=== PATIENT | male | born 1965 | race Caucasian/White ===

== ENCOUNTER 2022-04-15 16:15 | Emergency (ER) | payer MEDICAID, SELFPAY ==
[2022-04-15 16:16] VITALS: BP 149/96; PULSE 113; RESP 31; TEMP 36.7; O2SAT 96; BMI 30.8
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
[2022-04-15] MEDS: Ondansetron 4 MG/2 ML Vial IV (16:38)
[2022-04-15] MEDS: Morphine 4 MG/ML Syringe IV (16:38)
[2022-04-15] MEDS: 0.9% Normal Saline 1,000 ML 1000 ML IV (16:39)
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
[2022-04-15 16:43] LABS: Absolute Lymphocyte Count 2.38 X10^3/uL (0.83-4.51); Basophil# 0.05 X10^3/uL; Basophil% 0.3 % (0-1); Eosinophil# 0.07 X10^3/uL; Eosinophils% 0.4 % (0-5); Hematocrit 43.3 % (40-54); Hemoglobin 15.1 g/dL (13.0-16.5); Lymphocyte # 2.38 X10^3/ul (0.83-4.51); Lymphocyte % 14.3 % (19-41); Mean Corp Hgb Conc 34.9 g/dL (32-36); Mean Corpuscular Hgb 29.6 pg (27.0-32.0); Mean Corpuscular Volume 84.9 fL (80-94); Mean Platelet Vol. 9.6 fl (6.2-12.0); Monocyte# 1.05 X10^3/uL; Monocyte% 6.3 % (0-10); NRBC Flagged by Analyzer 0 % (0-5); Neutrophil # 12.96 X10^3/uL (2.7-7.7); Neutrophil % 77.7 % (47-70); Platelet Count 241 K/mm3 (150-450); RBC Distribution Width CV 12.8 % (11.6-14.6); White Blood Count 16.7 K/mm3 (4.4-11.0)
[2022-04-15 16:56] LABS: Anion Gap 7 (5-15); BUN 15 mg/dL (7-18); BUN/Creat Ratio 9.6 RATIO (10-20); Calcium,Total 8.4 mg/dL (8.5-10.1); Chloride 113 mmol/L (98-107); Creatinine, Serum 1.56 mg/dL (0.70-1.30); EST Glomerular Filtration Rate 49 mL/min (>60); Est Glom Filt Rate - Afr Amer 59 mL/min (>60); Estimated Creatinine Clearance 53.94 ml/min; Glucose 160 mg/dL (74-106); Potassium 3.9 mmol/L (3.5-5.1); Sodium Level 145 mmol/L (136-145)
[2022-04-15] MEDS: fentaNYL 100 MCG/2 ML Ampul 50 MCG IV (17:01)
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
[2022-04-15 17:52] VITALS: BP 130/93; PULSE 111; RESP 24; O2SAT 99
[2022-04-15] MEDS: HYDROmorphone 0.5 MG/0.5 ML SYRINGE IV ×2 (18:00→21:26)
[2022-04-15 18:01] VITALS: BP 133/89; PULSE 111; RESP 22; O2SAT 97
[2022-04-15 18:08] LABS: Mucous, Urine 0 SEEN /hpf (<or=2+)
[2022-04-15 18:13] LABS: Color, Urine Brown (Yellow); Glucose, Dipstick Normal (Normal); Ketone-Dipstick 5 mg/dl (Negative); Leukocyte Esterase-Dipstick 25 /ul (Negative); Nitrite-Dipstick Negative (Negative); Occult Blood-Urine 250 /ul (Negative); Protein-Dipstick 100 mg/dl (Negative); Urine Bilirubin Dipstick Negative (Negative); Urine Clarity Turbid (Clear); Urine Urobilinogen Normal (Normal); Urine pH 6.5 (5.0 - 8.0)
[2022-04-15 18:28] LABS: Red Blood Cells-Urine > 100 SEEN /hpf (0-5); Squamous Epithelial Cells - UA 0-5 SEEN /hpf (0-5); White Blood Cells 5-10 SEEN /hpf (0-5)
[2022-04-15 18:29] LABS: Bacteria 2+ /hpf (None Seen)
[2022-04-15 20:22] VITALS: BP 133/56; PULSE 106; RESP 18; TEMP 36.4; O2SAT 97
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
[2022-04-15 21:03] VITALS: PULSE 113; RESP 20; O2SAT 95
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
[2022-04-15] MEDS: 0.9% Normal Saline 1,000 ML 150 ML IV (21:14)
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
[2022-04-15 21:38] LABS: CPK Total, Creatine Kinase 327 U/L (39-308)
[2022-04-15 22:27] VITALS: BP 144/90; PULSE 115; RESP 19; TEMP 36.7; O2SAT 95
[2022-04-16] MEDS: HYDROmorphone 0.5 MG/0.5 ML SYRINGE IV (00:02)
== END 2022-04-16 00:23 | disposition short-term general hospital (02) ==
PROVIDERS: Nurse Practitioner; Emergency Provider Emergency Medicine; Visit Provider Emergency Medicine
DX: S32.82XA Multiple fractures of pelvis without disruption of pelvic ring, initial encounter for closed fracture (principal); S32.19XA Other fracture of sacrum, initial encounter for closed fracture; S22.41XA Multiple fractures of ribs, right side, initial encounter for closed fracture; S46.911A Strain of unspecified muscle, fascia and tendon at shoulder and upper arm level, right arm, initial encounter; W55.22XA Struck by cow, initial encounter; W55.89XA Other contact with other mammals, initial encounter; Y93.89 Activity, other specified; Y92.79 Other farm location as the place of occurrence of the external cause; Y99.8 Other external cause status; N28.9 Disorder of kidney and ureter, unspecified; E66.9 Obesity, unspecified; R31.9 Hematuria, unspecified; R73.9 Hyperglycemia, unspecified
CPT/HCPCS: 71260; 72170; 73030; 73552; 74177; 80048; 81001; 82550; 85025; 87086; 87811; 96361; 96374; 96375; 96376; 99285; J7030; Q9967; A4216; J2405

== ENCOUNTER 2022-04-21 14:45 | Inpatient (IN) | payer MEDICAID, SELFPAY ==
[2022-04-21 14:52] VITALS: BP 118/56; PULSE 60; RESP 18; TEMP 36.6; O2SAT 93
[2022-04-21 14:56] VITALS: BMI 31.8
[2022-04-21 19:22] VITALS: BP 126/64; PULSE 64; RESP 18; TEMP 36.7; O2SAT 94
[2022-04-21 22:00] VITALS: PULSE 64; RESP 18; O2SAT 94
[2022-04-21] MEDS: Senna/Docusate Sodium 1 Tablet 2 TABLET PO (22:16)
[2022-04-21] MEDS: oxyCODONE 5 MG Tablet PO (22:16)
[2022-04-21] MEDS: Acetaminophen 325 MG Tablet 650 MG PO (22:17)
--- NOTE | 2022-04-22 03:46 | NURSING ---
Reviewed and agree with [employer] documentation and assessment charting.
[2022-04-22 05:28] LABS: Absolute Lymphocyte Count 1.46 X10^3/uL (0.83-4.51); Absolute Neutrophil Count 7.9 X10^3/uL (2.0-7.7); Basophil# 0.03 X10^3/uL; Basophil% 0.3 % (0-1); Eosinophil# 0.11 X10^3/uL; Hematocrit 31.9 % (40-54); Hemoglobin 11.2 g/dL (13.0-16.5); Lymphocyte # 1.46 X10^3/ul (0.83-4.51); Lymphocyte % 13.6 % (19-41); Mean Corp Hgb Conc 35.1 g/dL (32-36); Mean Corpuscular Hgb 30.4 pg (27.0-32.0); Mean Corpuscular Volume 86.4 fL (80-94); Mean Platelet Vol. 8.2 fl (6.2-12.0); Monocyte# 1.16 X10^3/uL; Monocyte% 10.8 % (0-10); NRBC Flagged by Analyzer 0 % (0-5); Neutrophil # 7.86 X10^3/uL (2.7-7.7); Neutrophil % 72.9 % (47-70); Platelet Count 275 K/mm3 (150-450); RBC Distribution Width CV 12.6 % (11.6-14.6); RBC Distribution Width SD 39.7 fl (35.1-43.9); Red Blood Count 3.69 M/mm3 (4.6-6.2); White Blood Count 10.8 K/mm3 (4.4-11.0)
[2022-04-22 05:54] LABS: ALB/GLOB Ratio 0.5 RATIO (0.9-2.4); AST(SGOT) 65 U/L (15-37); Alanine Aminotransfer ALT/SGPT 92 U/L (16-61); Albumin, Serum 2.3 g/dL (3.2-5.0); Alkaline Phosphatase 80 U/L (45-117); Anion Gap 7 (5-15); BUN 23 mg/dL (7-18); BUN/Creat Ratio 24.4 RATIO (10-20); Calcium,Total 8.1 mg/dL (8.5-10.1); Chloride 102 mmol/L (98-107); Creatinine, Serum 0.94 mg/dL (0.70-1.30); EST Glomerular Filtration Rate 88 mL/min (>60); Est Glom Filt Rate - Afr Amer 106 mL/min (>60); Estimated Creatinine Clearance 89.52 ml/min; Globulin 4.2 g/dL (2.2-4.2); Glucose 111 mg/dL (74-106); Magnesium 2.3 mg/dL (1.6-2.6); Phosphorus 3.1 mg/dL (2.5-4.9); Potassium 4.2 mmol/L (3.5-5.1); Protein, Total 6.5 g/dL (6.4-8.2); Sodium Level 137 mmol/L (136-145)
[2022-04-22] MEDS: oxyCODONE 5 MG Tablet PO ×2 (06:02→16:04)
[2022-04-22] MEDS: Enoxaparin 40 MG/0.4 ML Syringe SC (06:03)
[2022-04-22 07:44] VITALS: BP 111/68; PULSE 101; RESP 18; TEMP 36.6; O2SAT 95
[2022-04-22 08:15] VITALS: O2SAT 95
[2022-04-22] MEDS: Menthol/Lanolin/Calamine/Znox 113 GM Tube 1 APPLIC TOPICAL ×2 (09:04→21:21)
[2022-04-22] MEDS: Senna/Docusate Sodium 1 Tablet 2 TABLET PO ×2 (09:04→21:21)
--- NOTE | 2022-04-22 09:04 | PCM.HP.STD ---
HPI - General General Date of Admission: 04/21/22 Date of Service: 04/22/22 Chief Complaint: Physical debility due to traumatic injuries sustained when he was trampled by a bull on 04/15/22. HPI Narrative DEBRA DURAN, is a 57 YO M with no significant PMH who presented to the ED at [facility] on 04/15/22 after his bull pinned him against a post and then proceeded to stomp him. He c/o pain in the left hip and thigh and the abdomen. Plain XRAYS in the ED showed fractures of the left superior and inferior pubic rami, left sacral fracture, L5 transverse process fracture and pubic symphysis diastasis. CT scan of the chest, abdomen and pelvis showed Fractured third and fourth ribs on the R. Dr. Barnhart from orthopedics saw Mr. Duran in the ED and recommended he be considered for fixation of the fractures. He recommended transfer to a facility where he could be evaluated by an orthopedic traumatologist. He was transferred to [facility] to the trauma service. Trauma service at [facility] recommended non-surgical management with TTWB only. While at [facility] he had R shoulder pain and a MRI of the shoulder was ordered and it showed a full-thickness tear of the supraspinatus with retraction with moderate associated joint effusion. This will be addressed as an OP. He was evaluated by PT/OT at [facility] and acute rehab was recommended. He was transferred to the acute inpt rehab unit at [facility] on 04/21/22 for 3 hours of therapy daily to restore function to the point where he could safely return home to recover from his injuries. All lab from this AM was personally reviewed. White blood cell count is normal. Hemoglobin is 11.2, down from 15.1 on 04/15/2022. Platelets are within normal limits. CMP is remarkable for an elevated BUN at 23 with a creatinine of 0.94, down from 1.56 on 04/15/2022. Calcium corrected for hypoalbuminemia is within normal limits. Mag and Phos are normal. AST and ALT are mildly elevated and the total bilirubin and alkaline phosphatase are normal. I suspect this is due to muscle trauma from being trampled. ` Debra is complaining of pain in the testicles and the scrotum and tells me that there are very swollen [facility] Medical History Obesity Home Medications enoxaparin 40 mg/0.4 mL subcutaneous syringe (Lovenox) 40 mg subcut Q24H blood clot prevention 04/21/22 [History Last Taken Unknown] oxycodone 5 mg tablet 5 - 10 mg PO Q4H PRN Pain 04/21/22 [History Last Taken 04/21/22 13:00] Allergy/AdvReac Type Severity Reaction Status Date / Time No Known Allergies Allergy Verified 04/15/22 16:22 Family History (Updated 04/22/22 @ 17:[address] Rosangela Rubio DO) Mother Heart disease valvular heart disease and his mom is still alive in 2021. Diabetes Father Heart disease he had CAD but of LANDEROS. Surgical History History of tonsillectomy and adenoidectomy S/P bunionectomy Social History (Updated 04/22/22 @ 17:[address] 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 He has an rare cigar now. alcohol intake: current alcohol intake frequency: 0-2 drinks per day details: 1 drink daily, beer. substance use type: does not use ROS Constitutional Constitutional: Reports difficulty sleeping and weakness; Denies anorexia, change in weight, chills, fatigue, fever(s) or night sweats Eyes Eyes: Denies blurry vision, change in vision, eye pain or loss of vision ENT HEENT: Denies abnormal hearing, dysphagia, headache(s), hearing loss, nasal congestion or sore throat Cardiovascular Cardiovascular: Reports chest pain; Denies dyspnea on exertion, edema, lightheadedness, orthopnea, palpitations, paroxysmal nocturnal dyspnea or syncope Respiratory/Chest Respiratory/Chest: Denies cough, dyspnea, shortness of breath at rest, shortness of breath with exertion or wheezing Gastrointestinal Gastrointestinal: Reports constipation; Denies abdominal pain, diarrhea, dyspepsia, hematemesis, hematochezia, nausea or vomiting Genitourinary Genitourinary: Reports nocturia, scrotal swelling, testicular swelling, urinary frequency and urinary urgency; Denies dysuria, hematuria, urinary hesitancy or urinary incontinence Musculoskeletal Musculoskeletal: Reports joint pain; Denies back pain, joint swelling or neck pain Neurologic Neurologic: Denies confusion, disequilibrium, dizziness, focal weakness, headache(s), paresthesias, seizures or tremor(s) Psychiatric Psychiatric: Denies anxiety, depression, homicidal ideation or suicidal ideation Endocrine Endocrinology: Denies change in body appearance, polydipsia or polyuria Hematologic/Lymphatic Hematologic/Lymphatic: Denies easy bleeding, easy bruising or lymphadenopathy Allergic/Immunologic Allergic/Immunologic: Denies rhinitis, eczemia or asthma Vital Signs Vital Signs Vital Signs: 04/21/22 14:52 04/21/22 19:22 04/21/22 22:00 Temperature 97.9 F 98.1 F Temperature Source Oral Oral Pulse Rate 60 64 Pulse Strength Weak (1+) Respiratory Rate 18 18 Respiratory Effort Respiratory Depth Respiratory Pattern Blood Pressure 118/56 L 126/64 H Blood Pressure Mean 76 84 Blood Pressure Source Monitor Monitor Blood Pressure Position Semi-Fowlers Semi-Fowlers Blood Pressure Location Left Arm Right Arm Pulse Ox 93 94 Oxygen Delivery Method Room Air Room Air 04/21/22 22:00 04/22/22 07:44 04/22/22 08:15 Temperature 97.8 F Temperature Source Oral Pulse Rate 64 101 H Pulse Strength Respiratory Rate 18 18 Respiratory Effort Normal Non-Labored Respiratory Depth Normal Respiratory Pattern Normal Blood Pressure 111/68 Blood Pressure Mean 82 Blood Pressure Source Monitor Blood Pressure Position Semi-Fowlers Blood Pressure Location Left Arm Pulse Ox 94 95 95 Oxygen Delivery Method Room Air Room Air Room Air Weight Weight: 222 lb Body Mass Index (BMI) 31.8 Physical Exam Const alert and oriented x3 Constitutional Narrative: Making good eye contact, appropriate. Appears to be in pain and has not had any pain medication other than Tylenol since 0630 this AM. General Appearance: cooperative and anxious HEENT HEENT Narrative: Dry mucous membranes and he was instructed to increase his fluid intake Head and Scalp: normal to inspection, normocephalic and atraumatic Eyes PERRL, EOMs intact bilaterally, conjunctivae normal, no scleral icterus and normal visual huerta by confrontation Neck no lymphadenopathy, supple, no JVD and no carotid bruits Neck Narrative: Brisk carotid upstrokes with good pulse volume Chest Chest Narrative: He has pain R chest wall that increases with breathing and movement. No crepitus Resp normal respiratory effort and no use of accessory muscles Resp Narrative: Not tachypneic and no conversational dyspnea. He does splint some on the right when he takes a deep breath. there are coarse crackles in both bases and he has an IS in his room. I explained why it is important to use the IS to prevent PNA and if he needs to take the Oxy that is OK. Cardio regular rate, regular rhythm, S1 normal heart sound, S2 normal heart sound, no murmurs, no rub and no gallops Cardio Narrative: Resting HR is mildly increased. GI GI Narrative: No guarding with palpation. The abd is mildly distended and tympanic and he has a bloated feeling in the lower abdomen. He had a BM after an enema but prior to that he had not had a BM since last . BS's are present and there is no rebound tenderness. Inspection: Negative for abdominal aortic bruit Narrative: Hematuria has resolved. The foreskin in ecchymotic and mildly edematous but, it retracts easily over the glans which is normal. The scrotum is ecchymotic and mildly swollen but, he is uncomfortable and tender to palpation. Testes: testicular swelling Back/Spine no CVA tenderness Extremity no clubbing, cyanosis or edema and no calf tenderness Extremity Narrative: Negative Simon's and Hermila's signs Skin Skin Narrative: No rashes, no skin breakdown. He has resolving ecchymosis in several locations. General Skin Exam: no breakdown Neuro oriented x3, CN's II-XII intact bilaterally, no focal motor deficits and no sensory deficits noted Motor Exam: strength 5/5 throughout Psych mental status grossly normal, thought process normal, cooperative, affect normal, speech normal, activity/motor behavior normal, denies hallucinations, denies homicidal ideation and denies suicidal ideation Psych Narrative: Appropriate, making good eye contact. Able to stay on topic and focus. No flight of ideas. Appears to be in pain and a bit anxious. Conversant and relating well to staff. Results Lab / Micro Data Result Diagrams: 04/22/22 05:23 04/22/22 05:23 Labs: Laboratory Results - last 24 hr 04/22/22 05:23: WBC 10.8, RBC 3.69 L, Hgb 11.2 L, Hct 31.9 L, MCV 86.4, MCH 30.4, MCHC 35.1, RDW Std Deviation 39.7, RDW Coeff of [place] 12.6, Plt Count 275, MPV 8.2, Immature Gran % (Auto) 1.400 H, Neut % (Auto) 72.9 H, Lymph % (Auto) 13.6 L, [place] % (Auto) 10.8 H, Eos % (Auto) 1.0, Baso % (Auto) 0.3, Absolute Neuts (auto) 7.9 H, Absolute Lymphs (auto) 1.46, Nucleated RBC % 0 04/22/22 05:23: Sodium 137, Potassium 4.2, Chloride 102, Carbon Dioxide 28.0, Anion Gap 7, BUN 23 H, Creatinine 0.94, Estim Creat Clear Calc 89.52, Est GFR (MDRD) Af Amer 106, Est GFR (MDRD) Non-Af 88, BUN/Creatinine Ratio 24.4 H, Glucose 111 H, Calcium 8.1 L, Phosphorus 3.1, Magnesium 2.3, Total Bilirubin 1.00, AST 65 H, ALT 92 H, Alkaline Phosphatase 80, Total Protein 6.5, Albumin 2.3 L, Globulin 4.2, Albumin/Globulin Ratio 0.5 L Assessment & Plan Assessment/Plan (1) Right rotator cuff tear: (2) Closed sacral fracture: (3) Right rib fracture: (4) Intractable pain: (5) Traumatic closed displaced fracture of pelvis: (6) Elevated transaminase measurement: (7) Acute blood loss anemia: (8) Benign prostatic hyperplasia (BPH) with urinary urgency: PLAN: suspected. Has nocturia a few times a day, slow stream, urgency and dribbling. No FH of prostate CA. Has never had a PSA. PLAN: Plan PLAN PT for gait stability OT for ADL's Analgesics as needed Bowel protocol Fall precautions Assess for Anxiety/Depression GI prophylaxis with Protonix 40 mg daily while he is on Naprosyn DVT prophylaxis with enoxaparin 40 mg subcu daily for at least 2 weeks for pelvic fractures Follow up with orthopedics following DC from IP Rehab AM lab including CMP, CBC, Mag and Phos reviewed He has a FH of HLD, heart disease and LANDEROS in his father. Has not seen a doctor in MANY years. does not no his cholesterol. Will check a lipid panel in the AM. Add Naprosyn 500 mg BID CM for pain control. Continue the Oxycodone as ordered. Ambien 5 mg p.o. nightly as needed insomnia Check a screening PSA and start Flomax 0.4 mg daily. Polar care to the R shoulder TID after therapy Ice to the scrotum PRN and apply scrotal support when he is up and about. He plans on following up with his 's PCP post DC for routing care.....Dr. Hernandez. He can follow up with Dr. Barnhart if desired if he does not want to go to [place] for follow up. Unit Exclusion This patient is an acute care inpatient being housed in the excluded unit because of capacity issues related to the disaster or emergency.: Yes Charges/Coding Visit Charges Inpatient E&M: 49367 Init Hosp L2
[2022-04-22] MEDS: Acetaminophen 325 MG Tablet 650 MG PO (09:06)
--- NOTE | 2022-04-22 18:32 | PCM.RU.PYE ---
Admission Information Primary Diagnosis:: Physical debility due to traumatic fracture of the left inferior and superior pubic rami with a symphysis pubis diastases, sacral fracture and rib fractures. Status Changes from Prescreening?: No changes Identified Actual Problem List:: Pain, ALteration in Cmfrt, Bowel, Constipation, Alteration in Sleep, Mobility Impaired, Self Care Deficit, Alteration/ Air Exchange (atelectasis in both lung bases), Fluid Change-Dehydration and Alteration-Leisure Activ. Potential Problem List:: DVT, Bleeding, Infection, UTI, Aspiration, Falls, Skin Integrity and Depression Risk of Complications DVT: LMWH and AVILA Hose Bleeding: Monitor Lab Values, Nursing to Teach Precautions for anti-coagulation therapy., Wound, if applicable, to be assessed every shift. and Stroke patients assessed for lethargy or change in status. Infection: Clinical Staff to Monitor for S/S of infection: and S/S of infection include fever, redness, warmth, etc. Urinary Tract Infection: Monitor for frequency, burning, discomfort, or incontinence. and Nursing will obtain urine sample for urinalysis and C&S when ordered. Aspiration: Clinical staff will monitor for coughing, drooling, congestion., Speech will evaluate swallowing and dsyphasia. and Nursing will monitor patient swallowing during meals. Falls: Patient will be evaluated for Fall Precautions and Patient will be placed on Fall Precautions as indicated per protocol. Skin Breakdown: Nursing will assess skin daily using assessment tool. and Nursing will place on Skin Breakdown Precautions as indicated. Pain: Clinical staff will assess patient's pain level per protocol., Medications will be given, if needed, and the pain level reassessed. and Other methods: Massage, distraction, decrease stimulus, etc. used PRN. Plan of Care Patient requires physician specializing in physical medicine and rehab oversight to provide close medical supervision of rehab issues including: Pain Management, Sleep Problems, Bowel and Bladder, Medical and co-morbidity Management, DVT prophylaxis, Rehabilitation Leadership and Coordination of treatment team Patient needs Physical Therapy: For a minimum of 1 hour and At least 5 out of 7 days Patient needs Physical Therapy to improve:: Mobility, Strengthening, Transfers, Stretching, ROM, Endurance, Stairs, Gait and Balance Patient needs Occupational Therapy: For a minimum of 1 hour and At least 5 out of 7 days Patient needs Occupational Therapy to improve ADL's incl.: Eating, Grooming, Bathing, Dressing, Toileting, Toilet transfers, Community Reintegration, Higher functioning activities, Household tasks, Adaptive Equipment, Splinting and Other activities as determined Patient requires 24/7 Rehabilitation Nursing for: Pain Issues, Identifying and preventing risk factors, Monitoring and reporting current medical conditions, Assisting with ambulation, transfer, and all ADL's, Teaching patients about disease process and medications, Family teaching, Providing safe environment, Bowel and Bladder Issues, Skin integrity and Medication Management Patient needs Supervisor Brine/ Case Management for: Discharge Planning, Arranging Home Equipment or Services and Family Interventions Patient needs Dietary and Nutrition Services for: Adequate Nutrition, Nutritional Supplements and Nutritional Education Goals Patient will remain: free from falls and or injury at time of discharge. Patient will perform bed mobility at: MOD I level of assist. Patient will complete transfers from bed to chair at: MOD I level of assist. Patient will ambulate: with LRD and - (20 feet with a wheeled walker at contact-guard assist with touchdown weightbearing on the left lower extremity to allow patient to return home with support from family) Patient will complete upper body dressing at: - (Supervision/min assist secondary to right rotator cuff tear) Patient will complete lower body dressing at: - (Standby assist to mod I) Patient will complete toileting at: MOD I level of assist. Patient will perform bathing at: - (Supervision/standby assist) Patient will complete grooming at: MOD I level of assist. Patient will achieve: - (1 curb step with a wheeled walker at minimal assistance) Patient will have pain level of: of 3 or less Patient's skin will: remain intact Patient will receive: adequate nutrition. Discharge Planning Pt Prognosis for Sig. Practical Improv. w/in Reasonable Time: Good Estimated Length of stay (days): 14 Anticipated D/C Destination: Home with Home Health Was Preadmission Assessment Accurate?: Yes
--- NOTE | 2022-04-22 18:47 | NURSING ---
agree with shift clinical and findings of jesika bhatia lpn 04/22
[2022-04-22] MEDS: Naproxen 500 MG Tablet PO (18:56)
[2022-04-22] MEDS: Tamsulosin HCl 0.4 MG Capsule PO (18:56)
[2022-04-22] MEDS: Acetaminophen 500 MG Tablet 1000 MG PO (18:56)
[2022-04-22 20:47] VITALS: BP 115/76; PULSE 80; RESP 18; TEMP 37.1; O2SAT 95
[2022-04-22] MEDS: Magnesium Hydroxide 30 ML UDC PO (21:22)
[2022-04-22] MEDS: Zolpidem Tartrate 5 MG Tablet PO (21:22)
[2022-04-22 23:04] VITALS: PULSE 80; RESP 18; O2SAT 95
[2022-04-23] MEDS: Acetaminophen 500 MG Tablet 1000 MG PO ×3 (02:17→18:35)
[2022-04-23] MEDS: Enoxaparin 40 MG/0.4 ML Syringe SC (04:34)
[2022-04-23 05:34] LABS: Cholesterol 140 mg/dL (200); High Density Lipoprotein 37 mg/dL; PSA,Total - Annual Screen 2.37 ng/mL (0.00-4.00); Triglycerides 107 mg/dL; Very Low Density Lipoprotein 21 mg/dL (5-40)
[2022-04-23] MEDS: oxyCODONE 5 MG Tablet PO (08:15)
[2022-04-23] MEDS: Pantoprazole Sodium 40 MG Tablet PO (08:15)
[2022-04-23] MEDS: Naproxen 500 MG Tablet PO ×2 (08:15→17:08)
[2022-04-23 10:00] VITALS: BP 102/74; PULSE 84; RESP 16; TEMP 36.4; O2SAT 97
[2022-04-23] MEDS: Menthol/Lanolin/Calamine/Znox 113 GM Tube 1 APPLIC TOPICAL ×2 (11:25→21:38)
--- NOTE | 2022-04-23 15:43 | CASEMGMT ---
Social Work Spoke with to update on TEAM meeting day/time change due to holiday. Sri Aviles, FURNACE INSTALLER JOURNEYMAN MOLDER
--- NOTE | 2022-04-23 16:09 | CHAPLAIN ---
Type of Pastoral Visit _x__ Initial Visit ___ Follow-up Visit ___ On-call Visit ___ General Patient Visit ___ Spiritual Assessment ___ Family Conference ___ Bereavement ___ Rapid Response ___ Code Blue ___ Other (describe below) Pastoral Care Referral From _x__ Patient ___ Family ___ Nurse ___ Physician ___ Hat Former ___ Pheresis Specialist ___ Other (describe below) Sacrament/Intervention _x__ Active listening ___ Anointing ___ Mosque ___ Bereavement ___ Communion _x__ Skye exploration ___ _x__ Life review _x__ Prayer ___ Reconciliation ___ Sacrament of Sick _x__ Supportive presence ___ Wedding ___ Other (describe below) Pastoral Comments sat at bedside for a long conversation with this patient; 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
--- NOTE | 2022-04-23 16:49 | CASEMGMT ---
SW requested pt have bring in copies of advanced directives
[2022-04-23] MEDS: Tamsulosin HCl 0.4 MG Capsule PO (17:08)
[2022-04-23 19:55] VITALS: BP 112/57; PULSE 73; RESP 18; TEMP 36.2; O2SAT 95
[2022-04-23 22:00] VITALS: PULSE 93; RESP 18; O2SAT 96
[2022-04-24] MEDS: Acetaminophen 500 MG Tablet 1000 MG PO ×3 (02:21→18:33)
[2022-04-24] MEDS: Enoxaparin 40 MG/0.4 ML Syringe SC (06:25)
[2022-04-24 07:40] VITALS: BP 108/66; PULSE 72; RESP 16; TEMP 36.6; O2SAT 97
[2022-04-24 07:43] VITALS: O2SAT 98
[2022-04-24] MEDS: Pantoprazole Sodium 40 MG Tablet PO (08:05)
[2022-04-24] MEDS: oxyCODONE 5 MG Tablet PO (08:05)
[2022-04-24] MEDS: Naproxen 500 MG Tablet PO ×2 (08:06→17:01)
[2022-04-24] MEDS: Menthol/Lanolin/Calamine/Znox 113 GM Tube 1 APPLIC TOPICAL ×2 (08:10→21:34)
[2022-04-24] MEDS: Tamsulosin HCl 0.4 MG Capsule PO (17:01)
[2022-04-24 18:51] VITALS: BP 124/66; PULSE 114; RESP 16; TEMP 36.5; O2SAT 98
[2022-04-24] MEDS: Zolpidem Tartrate 5 MG Tablet PO (21:34)
--- NOTE | 2022-04-25 02:50 | NURSING ---
REVIEWED AND AGREE WITH TOWNSHIP SUPERVISOR'S FUNCTIONAL ASSESSMENT AND HANDOFF CHARTING.
[2022-04-25] MEDS: Acetaminophen 500 MG Tablet 1000 MG PO ×3 (03:09→21:04)
[2022-04-25] MEDS: Enoxaparin 40 MG/0.4 ML Syringe SC (06:04)
[2022-04-25 07:30] VITALS: O2SAT 95
[2022-04-25 07:31] VITALS: BP 129/80; PULSE 91; RESP 18; TEMP 36.7; O2SAT 95
[2022-04-25] MEDS: Pantoprazole Sodium 40 MG Tablet PO (08:57)
[2022-04-25] MEDS: Naproxen 500 MG Tablet PO ×2 (08:57→16:47)
[2022-04-25] MEDS: Menthol/Lanolin/Calamine/Znox 113 GM Tube 1 APPLIC TOPICAL ×2 (08:58→21:04)
[2022-04-25] MEDS: Tamsulosin HCl 0.4 MG Capsule PO (16:46)
[2022-04-25 19:38] VITALS: BP 136/77; PULSE 109; RESP 16; TEMP 36.5; O2SAT 98
[2022-04-25 20:57] VITALS: PULSE 93
[2022-04-25] MEDS: Zolpidem Tartrate 5 MG Tablet PO (21:03)
[2022-04-25 22:00] VITALS: PULSE 93; RESP 16; O2SAT 99
[2022-04-26] MEDS: Acetaminophen 500 MG Tablet 1000 MG PO ×3 (06:09→21:21)
[2022-04-26] MEDS: Enoxaparin 40 MG/0.4 ML Syringe SC (06:09)
[2022-04-26 07:24] VITALS: BP 124/74; PULSE 83; RESP 15; TEMP 36.6; O2SAT 99
[2022-04-26 07:29] VITALS: O2SAT 96
[2022-04-26] MEDS: oxyCODONE 5 MG Tablet PO (07:31)
[2022-04-26] MEDS: Pantoprazole Sodium 40 MG Tablet PO (07:31)
[2022-04-26] MEDS: Naproxen 500 MG Tablet PO ×2 (07:31→16:41)
[2022-04-26] MEDS: Menthol/Lanolin/Calamine/Znox 113 GM Tube 1 APPLIC TOPICAL ×2 (07:33→21:31)
--- NOTE | 2022-04-26 12:12 | PCM.PROGNOTE ---
Subjective Subjective Afebrile VSS Maintaining appropriate oxygen saturation on RA Oral intake is good Discussed with nursing - no problems that need addressed Reviewed the PT/OT notes Medication list reviewed. Continues to c/o not sleeping well at night and can not tell me why he is not sleeping. This occasionally happens at home also. Denies CP, SOB, cough, palpitations, lightheadedness, dysuria, calf pain. Objective Data Objective Data Vital Signs: Vital Signs Temp Pulse Resp BP Pulse Ox O2 Del Method 97.8 F 83 15 124/74 H 96 Room Air 04/26/22 07:24 04/26/22 07:24 04/26/22 07:24 04/26/22 07:24 04/26/22 07:29 04/26/22 07:29 Oxygen Delivery Method Room Air Weight: 211 lb 10.3 oz Body Mass Index (BMI) 31.8 Intake & Output: Intake and Output for Last 24 Hours 04/24/22 04/25/22 04/26/22 23:59 23:59 23:59 Intake Total 830 / 830 480 / 480 360 / 360 Output Total 650 / 650 1125 / 1125 350 / 350 Balance 180 / 180 -645 / -645 Lab / Micro Data Result Diagrams: 04/29/22 05:19 04/29/22 05:19 Physical Exam Const Constitutional Narrative: Alert, oriented x3, lying in bed and appears in no acute distress. HEENT moist oral mucous membranes Resp Resp Narrative: Clear to auscultation with normal respiratory effort. Cardio Cardio Narrative: Regular rate and rhythm, no murmurs, no gallops. No ectopy. GI GI Narrative: Soft, nontender, nondistended, normal bowel sounds. Extremity no clubbing, cyanosis or edema and no calf tenderness Assessment & Plan Assessment/Plan (1) Insomnia: PLAN: Will have him take Oxycodone at HS to see if it is maybe pain that is waking him up. (2) Physical debility: PLAN: Continue therapy (3) Fracture, ribs: (4) Sacral fracture, closed: (5) Fracture of left inferior pubic ramus: (6) Fracture of left superior pubic ramus: (7) Acute blood loss anemia: PLAN: will recheck a CBC on 04/29/22. Charges/Coding Visit Charges Inpatient E&M: 30699 Subs Hosp L2
[2022-04-26] MEDS: Tamsulosin HCl 0.4 MG Capsule PO (16:41)
[2022-04-26 19:11] VITALS: BP 122/80; PULSE 90; RESP 14; TEMP 36.7; O2SAT 99
[2022-04-26] MEDS: Senna/Docusate Sodium 1 Tablet 2 TABLET PO (21:21)
[2022-04-26] MEDS: Zolpidem Tartrate 5 MG Tablet PO (21:22)
[2022-04-26 22:00] VITALS: PULSE 96; RESP 16; O2SAT 98
[2022-04-27] MEDS: Enoxaparin 40 MG/0.4 ML Syringe SC (05:11)
[2022-04-27] MEDS: Acetaminophen 500 MG Tablet 1000 MG PO ×3 (05:12→20:31)
[2022-04-27 08:26] VITALS: BP 121/73; PULSE 83; RESP 16; TEMP 36.8; TEMP 36.9; O2SAT 98
--- NOTE | 2022-04-27 09:28 | CASEMGMT ---
Social Work IDT met with patient and for Team meeting. Discussed patient's progress in PT/OT/SN. Educated to [facility] with NRD 04/27 and continued stay is not guaranteed. Pts goal is to return home with . Pt progressing well. IDT offered to set DC.v Pt/ agreeable to DC 05/01. Therapy will provide HEP and ortho Dr to order continued therapy at f/u. No DME needs. to purchase OTC DME. to transport. Plan: DC home with 05/01, no needs. Sri Aviles, PRESSER HAND AUTO SERVICE INSTRUCTOR
[2022-04-27] MEDS: Pantoprazole Sodium 40 MG Tablet PO (10:29)
[2022-04-27] MEDS: Naproxen 500 MG Tablet PO ×2 (10:29→17:01)
[2022-04-27] MEDS: Menthol/Lanolin/Calamine/Znox 113 GM Tube 1 APPLIC TOPICAL ×2 (10:30→20:30)
--- NOTE | 2022-04-27 11:26 | PN_ITS ---
Subjective Subjective Angel was seen on team rounds today. His Ana was present in the room for rounds. Afebrile VSS Maintaining appropriate oxygen saturation on RA Oral intake is good Discussed with nursing - no problems that need addressed Reviewed the PT/OT notes Medication list reviewed. Did his therapy today and did not take the Oxycodone prior to the therapy session. He had some pain near the end of the session ho wever it resolved in just a few minutes. He is sleeping well. Tells me that the dribbling has improved since the Flomax was started. Getting up at night to urinate still but, he sometimes only goes a little and I think pain wakes him up and not the urge to urinate. He denies CP, SOB, palpitations, lightheadedness, calf pain, GAONA, dysuria. Objective Data Objective Data Vital Signs: Vital Signs Temp Pulse Resp BP Pulse Ox O2 Del Method 98.5 F 83 16 121/73 H 98 Room Air 04/27/22 08:26 04/27/22 08:26 04/27/22 08:26 04/27/22 08:26 04/27/22 08:26 04/27/22 08:26 Oxygen Delivery Method Room Air Weight: 211 lb 10.3 oz Body Mass Index (BMI) 31.8 Intake & Output: Intake and Output for Last 24 Hours 04/25/22 04/26/22 04/27/22 23:59 23:59 23:59 Intake Total 480 / 480 1450 / 1450 Output Total 1125 / 1125 900 / 900 500 / 500 Balance -645 / -645 550 / 550 -500 / -500 Lab / Micro Data Result Diagrams: 04/22/22 05:23 04/22/22 05:23 Physical Exam Const alert, oriented x3 and no apparent distress Constitutional Narrative: Sittine in the recliner at the bedside and was playing cards with his . General Appearance: cooperative Resp normal respiratory effort, normal air movement and clear to auscultation adriane aterally Cardio regular rate, regular rhythm, no murmurs and no gallops GI normal to inspection, nondistended, normoactive bowel sounds, soft to palpation and non-tender Extremity no calf tenderness Extremity Narrative: mild swelling of the LLE Skin General Skin Exam: no breakdown Rashes: no rashes Neuro Neuro Narrative: he has an intention tremor that I have observed twice now, usually when he is reaching for something......eg reaching for the cards on the bedside table to put them in the box . No resting tremor. He tells me that he has never noticed a tremor before. Psych thought process normal and cooperative Appearance: appropriate Assessment & Plan Assessment/Plan (1) Physical debility: PLAN: Due to being charged and tramples by a bull. Continue therapy. (2) Fracture of left superior pubic ramus: (3) Fracture of left inferior pubic ramus: (4) Sacral fracture, closed: (5) Fracture, ribs: (6) Acute blood loss anemia: (7) Right rotator cuff tear: PLAN: supraspinatus - to he repaired AFTER he is able to bear full weight and maintain his balance. (8) Intention tremor: PLAN: May be due to weakness/pain. PLAN: Plan Angel is anxious to get home. He agrees to stay until Tuesday and the therapists feel that he will be ready at that time. His is in agreement with the plan. No DME needed. Recheck a CBC and a CMP on . Charges/Coding Visit Charges Inpatient E&M: 14942 Subs Hosp L2
[2022-04-27] MEDS: oxyCODONE 5 MG Tablet PO (14:14)
[2022-04-27] MEDS: Tamsulosin HCl 0.4 MG Capsule PO (17:01)
[2022-04-27 19:23] VITALS: BP 108/67; PULSE 107; RESP 18; TEMP 36.6; O2SAT 97
[2022-04-27] MEDS: Senna/Docusate Sodium 1 Tablet 2 TABLET PO (20:30)
[2022-04-28] MEDS: Acetaminophen 500 MG Tablet 1000 MG PO ×3 (06:35→21:00)
[2022-04-28] MEDS: Enoxaparin 40 MG/0.4 ML Syringe SC (06:35)
[2022-04-28] MEDS: oxyCODONE 5 MG Tablet PO ×2 (07:56→20:59)
[2022-04-28] MEDS: Naproxen 500 MG Tablet PO ×2 (07:56→17:34)
[2022-04-28] MEDS: Pantoprazole Sodium 40 MG Tablet PO (07:56)
[2022-04-28 08:23] VITALS: BP 134/77; PULSE 94; RESP 16; TEMP 36.6; O2SAT 98
[2022-04-28] MEDS: Menthol/Lanolin/Calamine/Znox 113 GM Tube 1 APPLIC TOPICAL ×2 (09:16→21:02)
--- NOTE | 2022-04-28 15:02 | PN_ITS ---
Subjective Subjective Afebrile Vital signs stable Maintaining appropriate oxygen saturation on room air Good oral intake Did not sleep well again last night. He admits to having a lot on his mind. 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 He also has trouble sleeping at home at times when he is feeling stressed. He has some Left calf pain with dorsiflexion of the left foot and with certain exercises in therapy. He also has a knot in the Left medial thigh proximal to the knee that is painful. there is swelling of the L thigh and calf and when I dorsiflexed his Left foot he had pain in the calf. He is on Lovenox 40 mg SQ daily for DVT prophylaxis. HRRR Lungs CTA, denies SOB and CP. Impressions 1. traumatic fx of the L inferior and superior pubic rami and the closed sacral fx. 2. Unilateral Left leg swelling 3. insomnia - suspect he is having anxiety Continue therapy US of the LLE today [facility] at Objective Data Objective Data Vital Signs: Vital Signs Temp Pulse Resp BP Pulse Ox O2 Del Method 97.8 F 94 16 134/77 H 98 Room Air 04/28/22 08:23 04/28/22 08:23 04/28/22 08:23 04/28/22 08:23 04/28/22 08:23 04/28/22 08:23 Oxygen Delivery Method Room Air Weight: 212 lb 8.41 oz Body Mass Index (BMI) 31.8 Intake & Output: Intake and Output for Last 24 Hours 04/26/22 04/27/22 04/28/22 23:59 23:59 23:59 Intake Total 1450 / 1450 240 / 240 540 / 540 Output Total 900 / 900 750 / 750 Balance 550 / 550 -510 / -510 540 / 540 Lab / Micro Data Result Diagrams: 04/22/22 05:23 04/22/22 05:23 Charges/Coding Visit Charges Inpatient E&M: 29368 Subs Hosp L1
--- NOTE | 2022-04-28 15:09 | VDLE_ITS ---
Reason For Study: PAIN Procedure LEFT This is a venous duplex using B-mode, color GSV is normal. flow and spectral Doppler. CFV is compressible, spontaneous, phasic, Exam performed portable in patient room. competent, and demonstrates normal A preliminary report was called and/or faxed augmentation. to Dr. Rubio/Rehab Unit. FV is compressible, spontaneous, phasic, competent and demonstrates normal augmentation. POP V is compressible, spontaneous, phasic, competent and demonstrates normal augmentation. T/P Trunk is compressible. PTV is compressible. LT PerV is compressible. Acute deep vein thrombosis is noted in the left soleus vein. VL/Venous Duplex US, Unilateral Interpretation Summary Acute deep vein thrombosis is noted in the left soleus vein. The remainder of t he left lower extremity deep venous system is patent and compressible. Valvular competence ap pears intact within the proximal deep venous system on the left . The left great saphenous vein alvarado ears patent and compressible segmentally. Ordering Physician: Rosangela Rubio Referring Physician: Keon Hernandez Performed By: Rupinder Arana, SOLISCS, RVT
[2022-04-28] MEDS: Tamsulosin HCl 0.4 MG Capsule PO (17:34)
[2022-04-28 19:28] VITALS: BP 114/73; PULSE 95; RESP 16; TEMP 36.4; O2SAT 98
[2022-04-28] MEDS: LORazepam 0.5 MG Tablet PO (20:59)
[2022-04-28] MEDS: Senna/Docusate Sodium 1 Tablet 2 TABLET PO (21:01)
[2022-04-28] MEDS: Enoxaparin 100 MG/ML Syringe SC (21:01)
[2022-04-29] MEDS: Acetaminophen 500 MG Tablet 1000 MG PO ×3 (05:14→21:30)
[2022-04-29 05:26] LABS: Hematocrit 34.2 % (40-54); Hemoglobin 11.2 g/dL (13.0-16.5); Mean Corp Hgb Conc 32.7 g/dL (32-36); Mean Corpuscular Hgb 28.9 pg (27.0-32.0); Mean Corpuscular Volume 88.1 fL (80-94); Mean Platelet Vol. 8.1 fl (6.2-12.0); Platelet Count 442 K/mm3 (150-450); RBC Distribution Width CV 13.2 % (11.6-14.6); RBC Distribution Width SD 41.7 fl (35.1-43.9); Red Blood Count 3.88 M/mm3 (4.6-6.2); White Blood Count 7.2 K/mm3 (4.4-11.0)
[2022-04-29 05:41] LABS: ALB/GLOB Ratio 0.8 RATIO (0.9-2.4); AST(SGOT) 23 U/L (15-37); Alanine Aminotransfer ALT/SGPT 54 U/L (16-61); Alkaline Phosphatase 165 U/L (45-117); Anion Gap 7 (5-15); BUN 22 mg/dL (7-18); BUN/Creat Ratio 23.9 RATIO (10-20); Calcium,Total 8.4 mg/dL (8.5-10.1); Chloride 107 mmol/L (98-107); Creatinine, Serum 0.92 mg/dL (0.70-1.30); EST Glomerular Filtration Rate 90 mL/min (>60); Est Glom Filt Rate - Afr Amer 109 mL/min (>60); Estimated Creatinine Clearance 91.47 ml/min; Globulin 3.7 g/dL (2.2-4.2); Glucose 94 mg/dL (74-106); Potassium 3.9 mmol/L (3.5-5.1); Protein, Total 6.7 g/dL (6.4-8.2); Sodium Level 140 mmol/L (136-145)
[2022-04-29 07:43] VITALS: BP 150/68; PULSE 90; RESP 18; TEMP 36.4; O2SAT 96
[2022-04-29] MEDS: Pantoprazole Sodium 40 MG Tablet PO (08:02)
[2022-04-29] MEDS: Enoxaparin 100 MG/ML Syringe SC ×2 (08:02→21:30)
[2022-04-29] MEDS: Naproxen 500 MG Tablet PO ×2 (08:02→17:03)
[2022-04-29] MEDS: Senna/Docusate Sodium 1 Tablet 2 TABLET PO ×2 (08:02→21:30)
[2022-04-29] MEDS: Menthol/Lanolin/Calamine/Znox 113 GM Tube 1 APPLIC TOPICAL ×2 (08:04→21:35)
[2022-04-29] MEDS: oxyCODONE 5 MG Tablet PO ×2 (08:08→21:31)
--- NOTE | 2022-04-29 11:07 | PN_ITS ---
Progress Note Afebrile VSS Maintaining appropriate oxygen saturation on RA Oral intake is good Discussed with nursing - no problems that need addressed Reviewed the PT/OT/ST notes Medication list reviewed. All lab from today was personally reviewed. The white blood cell count is normal and the hemoglobin is stable at 11.2. Platelets are within normal limit s. BMP is remarkable for an elevated BUN at 22 with a stable creatinine at 0.92. AST and ALT are now normal and the elevation was most likely secondary to muscle trauma. The alkaline phosphatase is elevated at 165 and this is most likely secondary to recent pelvic fractures and sacral fracture. Calcium corrected for hypoalbuminemia is within normal limits. Angel denies chest pain, hemoptysis, shortness of breath, palpitations, lightheadedness. He has pain in the left buttock and in the left quadriceps with exercise. The pain in the left calf is better than it was yesterday since he has been started on Lovenox for the soleus vein DVT. He tells me that he slept much better last night with the 5 mg of Ativan. Physical Exam Const Constitutional Narrative: Alert, oriented x3, lying in bed and appears in no acute distress. Resp Resp Narrative: Clear to auscultation with normal respiratory effort. Cardio Cardio Narrative: Regular rate and rhythm, no murmurs, no gallops. No ectopy. GI GI Narrative: Soft, nontender, nondistended, normal bowel sounds. Extremity Extremity Narrative: Still with swelling in the left lower extremity but, no edema in the RLE. Assessment & Plan Assessment/Plan (1) DVT (deep venous thrombosis): PLAN: Start Eliquis. A starter cory was called into his pharmacy and he his , Ana, will pick it up tomorrow and bring it to the hospital so we can start it Tuesday morning. Eliquis is on Formulary for his insurance. (2) Physical debility: PLAN: Continue therapy (3) Fracture, ribs: (4) Sacral fracture, closed: (5) Fracture of left inferior pubic ramus: (6) Fracture of left superior pubic ramus: (7) Acute blood loss anemia: PLAN: Stable (8) Elevated transaminase measurement: PLAN: Elevated transaminases resolved and was likely due to muscle trauma related to his injuries. The alkaline phosphatase is mildly elevated and this is likely secondary to fracture/healing. (9) Insomnia: PLAN: Will give him a RX for Ativan at DC to be used PRN for insomnia. PLAN: Plan Plan DC home on Tuesday. Home exercises will be given by the therapists prior to DC and he will not need additional PT/OT until the orthopedic doctor tells him it is OK to advance the wt bearing status and and begin PT/OT as an OP. Will also need to have a rotator cuff repair after the pelvis heals. Visit Charges Inpatient E&M: 73870 Subs Hosp L2
[2022-04-29] MEDS: Tamsulosin HCl 0.4 MG Capsule PO (17:03)
[2022-04-29 19:28] VITALS: BP 124/64; PULSE 89; RESP 18; TEMP 36.3; O2SAT 98
[2022-04-29] MEDS: Zolpidem Tartrate 5 MG Tablet PO (21:29)
[2022-04-29] MEDS: LORazepam 0.5 MG Tablet PO (21:30)
[2022-04-30] MEDS: Acetaminophen 500 MG Tablet 1000 MG PO ×3 (06:03→21:33)
[2022-04-30 07:18] VITALS: BP 138/70; PULSE 90; RESP 20; TEMP 36.5; O2SAT 97
[2022-04-30] MEDS: Naproxen 500 MG Tablet PO ×2 (08:06→17:26)
[2022-04-30] MEDS: Pantoprazole Sodium 40 MG Tablet PO (08:06)
[2022-04-30] MEDS: oxyCODONE 5 MG Tablet PO ×2 (09:53→21:41)
[2022-04-30] MEDS: Enoxaparin 100 MG/ML Syringe SC ×2 (09:54→21:30)
--- NOTE | 2022-04-30 14:09 | DCINST_ITS ---
Discharge Instructions Diet Discharge Diet: No restrictions Activity Discharge Activity: May Not Drive, May Shower and Use Walker May resume sexual activity in: 6-8 weeks Weight Bearing Status: Toe touch weight bearing (Left leg) Keep extremity elevated above heart level: Left Leg Dressing / Incision Call your doctor if you observe: Fever of 101 or Higher, Numbness or Tingling, Inability to urinate, Inability to have a bowel movement, Shortness of breath, Dizziness, Fainting spells, Chest pain, Increased palpitations (irregular heartbeat), Uncontrolled pain and - (coughing up blood. ) Follow Up Care Please Follow Up With: Keon Hernandez, DO When: within the next 2 weeks. Test Results: Test results from this visit will be discussed in further detail at your follow- up appointment, if applicable. Pending Tests Upon Discharge: none Discharge Plan Admission Admit Date/Time: 04/21/22 14:45 Primary Reason for Your Visit: Pelvic fractures/R rotator cuff tear/sacral fracture Attending Provider: Rosangela Rubio Primary Care Provider: Keon Hernandez Instructions Patient Instructions: DVT/PE Discharge instruction sheet, DVT Complications, PSA Test, Benign Prostatic Hyperplasia Additional Instructions / Restrictions: 1. Do the exercises given to you by the therapists daily.......do NOT overdue because this will delay healing of the bone. 2. No sexual intercourse for 6-8 weeks because this can cause the fractured bones in the pelvis to move and disrupt the bone callus that is forming to heal the fracture and restore stability in the pelvis. Oral sex is OK. Discharge Orders/Prescriptions Prescriptions: New acetaminophen 500 mg Tablet 1,000 mg PO Q8H PRN PRN (Reason: fever or pain) Qty: 0 0RF oxycodone 5 mg Tablet 5 - 10 mg PO Q4H PRN (Reason: Pain 1-10) 7 Days Qty: 40 0RF lorazepam 0.5 mg Tablet 0.5 mg PO QHS PRN PRN (Reason: insomnia) Qty: 30 0RF Rx Instructions: Take 1 hour prior to going to bed as needed for insomnia tamsulosin 0.4 mg Capsule 0.4 mg PO DAILY@1730 Qty: 30 0RF pantoprazole 40 mg Tablet,Delayed Release (Dr/Ec) 40 mg PO DAILY Qty: 30 0RF naproxen 500 mg Tablet 500 mg PO BIDCM Qty: 60 0RF Rx Instructions: take with food apixaban 5 mg tablet 5 mg PO BID Qty: 60 1RF Rx Instructions: Take 2 tabs every 12 hours for 7 days and they decrease to 1 tab every 12H Discontinued oxycodone 5 mg Tablet 5 - 10 mg PO Q4H PRN (Reason: Pain) Rx Instructions: 5mg pain 1-5 10 mg pain 6-10 enoxaparin [Lovenox] 40 mg/0.4 mL Syringe 40 mg SUBCUT Q24H Referrals / Follow Up: Anai Mcgarry MD [Non-Staff] - 05/04/22 8:40 am (Bring insurance care, ID and list of medications) Keon Hernandez DO [Primary Care Provider] - 05/26/22 2:20 pm Disposition Disposition (needs filled in before D/C Order can be placed): Home, Self Care
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
[2022-04-30] MEDS: Tamsulosin HCl 0.4 MG Capsule PO (17:26)
[2022-04-30] MEDS: LORazepam 0.5 MG Tablet PO (21:33)
[2022-04-30 21:43] VITALS: BP 131/76; PULSE 85; RESP 18; TEMP 36.6; O2SAT 97
[2022-05-01] MEDS: Acetaminophen 500 MG Tablet 1000 MG PO (05:37)
[2022-05-01 07:55] VITALS: BP 107/55; PULSE 78; RESP 16; TEMP 36.1; O2SAT 97
[2022-05-01] MEDS: Pantoprazole Sodium 40 MG Tablet PO (08:30)
[2022-05-01] MEDS: APIXABAN 5 MG TABLET PO (08:31)
[2022-05-01] MEDS: Senna/Docusate Sodium 1 Tablet 2 TABLET PO (08:31)
[2022-05-01] MEDS: Naproxen 500 MG Tablet PO (08:31)
[2022-05-01] MEDS: Menthol/Lanolin/Calamine/Znox 113 GM Tube 1 APPLIC TOPICAL (09:06)
== END 2022-05-01 10:30 | disposition home or self-care (01) | DRG 862 ==
PROVIDERS: Admitting Provider Internal Medicine; PCP Student in an Organized Health Care Education/Training Program; Visit Provider Internal Medicine
DX: S32.10XD Unspecified fracture of sacrum, subsequent encounter for fracture with routine healing (principal); I82.409 Acute embolism and thrombosis of unspecified deep veins of unspecified lower extremity; E66.9 Obesity, unspecified; N40.0 Benign prostatic hyperplasia without lower urinary tract symptoms; S22.41XD Multiple fractures of ribs, right side, subsequent encounter for fracture with routine healing; R74.01 Elevation of levels of liver transaminase levels; Z87.891 Personal history of nicotine dependence; W55.89XD Other contact with other mammals, subsequent encounter; S32.512D Fracture of superior rim of left pubis, subsequent encounter for fracture with routine healing; S32.592D Other specified fracture of left pubis, subsequent encounter for fracture with routine healing; S32.059D Unspecified fracture of fifth lumbar vertebra, subsequent encounter for fracture with routine healing; Z68.31 Body mass index [BMI] 31.0-31.9, adult; S46.011D Strain of muscle(s) and tendon(s) of the rotator cuff of right shoulder, subsequent encounter
CPT/HCPCS: 36415; 80053; 80061; 83735; 84100; 84153; 85025; 85027; 93971; 97110; 97116; 97162; 97166; 97530; 97535; 97542; 97802; 97803; 99251; G0103; G0463

== ENCOUNTER → 2022-06-03 | Outpatient (CLI) | payer MEDICAID, SELFPAY ==
--- NOTE | 2022-06-03 13:48 | VDLE_ITS ---
Reason For Study: DVT Procedure LEFT This is a venous duplex using B-mode, color GSV is normal. flow and spectral Doppler. CFV is compressible, spontaneous, phasic, Exam performed in department. competent, and demonstrates normal The exam was abbreviated due to the COVID 19 augmentation. protocol. FV is compressible, spontaneous, phasic, The exam was diagnostic. competent and demonstrates normal A preliminary report was called and/or faxed augmentation. to Dr. Hernandez. POP V is compressible, spontaneous, phasic, competent and demonstrates normal augmentation. T/P Trunk is compressible. PTV is compressible. LT PerV is compressible. Soleus V is now partially compressible. Improvement from previous study done 04/28/22. VL/Venous Duplex US, Unilateral Interpretation Summary The left soleus vein is partially compressible, demonstrating improvement in th e acute deep vein thrombosis previously noted on a prior study on 04/28/22. The remainder of the le ft lower extremity deep venous system is patent and compressible. Valvular competence appears inta ct within the proximal deep venous system on the left . The left great saphenous vein appears patent and compressible segmentally. Ordering Physician: Keon Hernandez Performed By: Chemo Downing RVT
== END | disposition home or self-care (01) ==
LOC: CVS 13:42
PROVIDERS: PCP Student in an Organized Health Care Education/Training Program; Referring Provider Student in an Organized Health Care Education/Training Program; Visit Provider Student in an Organized Health Care Education/Training Program
DX: I82.452 Acute embolism and thrombosis of left peroneal vein (principal)
CPT/HCPCS: 93971